=== PATIENT | female | born 1990 | race Caucasian/White ===

== ENCOUNTER 2017-04-23 18:41 | Emergency (ER) | payer MEDICAID ==
[~2017-04-23] VITALS: Ht 160 cm; Wt 72.6 kg
[~2017-04-23 18:41] MED LIST: FLA500 PO; LAC PO; PROVENTIL0.09 MG/A1 INH; ZOF4 PO
[2017-04-23 20:02] VITALS: BP 118/87
== END 2017-04-23 20:02 | disposition home or self-care (01) ==
LOC: ED 18:41
DX: Z76.0 Encounter for issue of repeat prescription (principal); J45.909 Unspecified asthma, uncomplicated

== ENCOUNTER 2018-01-05 07:54 | Emergency (ER) | payer MEDICAID ==
[~2018-01-05] VITALS: Ht 160 cm; Wt 79.8 kg
[2018-01-05 08:03] VITALS: Ht 160 cm; Wt 79.8 kg
[2018-01-05 10:04] VITALS: BP 103/75
== END 2018-01-05 10:04 | disposition home or self-care (01) ==
LOC: ED 07:54
DX: T16.1XXA Foreign body in right ear, initial encounter (principal); H60.91 Unspecified otitis externa, right ear; W22.8XXA Striking against or struck by other objects, initial encounter; Y93.89 Activity, other specified; Y92.89 Other specified places as the place of occurrence of the external cause; J45.909 Unspecified asthma, uncomplicated; Y99.8 Other external cause status

== ENCOUNTER 2018-02-17 14:58 | Emergency (ER) | payer MEDICAID ==
[~2018-02-17] VITALS: Ht 157.5 cm; Wt 78.9 kg
[2018-02-17 15:27] VITALS: Ht 157.5 cm; Wt 78.9 kg
[2018-02-17 16:16] LABS: microscopic required? NO
[2018-02-17 16:36] LABS: BASOPHIL % 0.2 % (0-2); PLATELET COUNT 285 x10^3mcL (130-400); RED CELL DISTRIBUTION WIDTH 12.7 % (11.5-14.5)
[2018-02-17 16:37] LABS: urine erythrocyte NEGATIVE (NEGATIVE)
[2018-02-17 16:57] LABS: CALCIUM 8.9 mg/dL (8.5-10.1); CARBON DIOXIDE 25.8 mmol/L (21-32); CHLORIDE SERUM 101 mmol/L (98-107); CREATININE SERUM 0.5 mg/dL (0.6-1.0); GFR1 > 60 mL/min; GLUCOSE SERUM 80 mg/dL (74-106); POTASSIUM SERUM 3.8 mmol/L (3.5-5.1); SODIUM SERUM 135 mmol/L (136-145)
[2018-02-17 17:01] LABS: ALKALINE PHOSPHATASE 75 U/L (46-116); ALT/SGPT 30 U/L (14-59); AST/SGOT 16 U/L (15-37); BILIRUBIN TOTAL 0.2 mg/dL (0.20-1.00); TOTAL PROTEIN, SERUM 7.2 g/dL (6.4-8.2)
[2018-02-17 17:02] LABS: ALBUMIN 3.2 g/dL (3.4-5.0)
[2018-02-17 18:18] VITALS: BP 128/64
== END 2018-02-17 18:18 | disposition home or self-care (01) ==
LOC: ED 14:58
PROVIDERS: Emergency Medicine
DX: O20.0 Threatened abortion (principal)
CPT/HCPCS: 36415

== ENCOUNTER 2018-12-02 21:18 | Emergency (ER) | payer MEDICAID ==
[~2018-12-02] VITALS: Ht 157.5 cm; Wt 74.4 kg
[2018-12-02 21:37] VITALS: Ht 157.5 cm; Wt 74.4 kg
[2018-12-02 23:25] VITALS: BP 102/62
== END 2018-12-02 23:25 | disposition home or self-care (01) ==
LOC: ED 21:18
DX: J06.9 Acute upper respiratory infection, unspecified (principal); J45.909 Unspecified asthma, uncomplicated; Z98.890 Other specified postprocedural states

== ENCOUNTER 2019-04-27 18:56 | Emergency (ER) | payer MEDICAID ==
[~2019-04-27] VITALS: Ht 160 cm; Wt 80.3 kg
[2019-04-27 19:02] VITALS: BP 122/83; Ht 160 cm; Wt 80.3 kg
== END 2019-04-27 20:48 | disposition home or self-care (01) ==
LOC: ED 18:56
DX: J45.909 Unspecified asthma, uncomplicated (principal)
CPT/HCPCS: J2920; J7620

== ENCOUNTER 2019-05-18 20:13 | Emergency (ER) | payer MEDICAID ==
[~2019-05-18] VITALS: Ht 157.5 cm; Wt 81.6 kg
[2019-05-18 20:19] VITALS: BP 136/79; Ht 157.5 cm; Wt 81.6 kg
[2019-05-18 21:43] LABS: microscopic required? YES; urine erythrocyte 3+ (NEGATIVE)
== END 2019-05-18 22:05 | disposition home or self-care (01) ==
LOC: ED 20:13
PROVIDERS: Emergency Medicine
DX: N39.0 Urinary tract infection, site not specified (principal); J45.909 Unspecified asthma, uncomplicated; F32.9 Major depressive disorder, single episode, unspecified